=== PATIENT | female | born 1970 | race Caucasian/White ===

== ENCOUNTER → 2017-09-01 | Outpatient (CLI) | payer OTHER ==
[~2017-09-01] MED LIST: FLUO10 PO; HYDHCL10EL PO; Omeprazole20 M1 PO
== END ==
LOC: LAB SHORT 13:30 → LAB 13:30 → EDSTATUS 08-30 07:00 → LAB FUT 08-30 07:00
DX: R19.7 Diarrhea, unspecified (principal)
CPT/HCPCS: 87015; 87045; 87046; 87177; 87205; 87209; 87493; 87899

== ENCOUNTER 2017-10-25 10:20 | Day surgery (SDC) | payer OTHER ==
[~2017-10-25] VITALS: Ht 177.8 cm; Wt 78.5 kg
== END 2017-10-25 22:55 | disposition home or self-care (01) ==
LOC: ORSCMMR 10:20
PROVIDERS: Internal Medicine Gastroenterology
PROC: 0DC68ZZ Extirpation of Matter from Stomach, Via Natural or Artificial Opening Endoscopic (ICD-10-PCS; principal; 2017-10-25 11:30)
PROC: 0DBE8ZX Excision of Large Intestine, Via Natural or Artificial Opening Endoscopic, Diagnostic (ICD-10-PCS; principal; 2017-10-25 11:30)
PROC: 0DB68ZX Excision of Stomach, Via Natural or Artificial Opening Endoscopic, Diagnostic (ICD-10-PCS; principal; 2017-10-25 11:30)
PROC: 0DB88ZX Excision of Small Intestine, Via Natural or Artificial Opening Endoscopic, Diagnostic (ICD-10-PCS; principal; 2017-10-25 11:30)
DX: R19.7 Diarrhea, unspecified (principal); K29.70 Gastritis, unspecified, without bleeding; K44.9 Diaphragmatic hernia without obstruction or gangrene; T18.2XXA Foreign body in stomach, initial encounter; Z85.028 Personal history of other malignant neoplasm of stomach; F32.9 Major depressive disorder, single episode, unspecified; Z79.899 Other long term (current) drug therapy
CPT/HCPCS: 88300; 88305; 88341; 88342; J7120